=== PATIENT | female | born 1940 | race Caucasian/White ===

== ENCOUNTER 2017-07-13 08:37 | Emergency (ER) | payer MEDICARE, OTHER ==
[~2017-07-13] VITALS: Ht 160 cm; Wt 68.0 kg
[~2017-07-13 08:37] MED LIST: ATIVAN1 MG PO; BABY ASPIRIN81 MG PO; CALCIUM + D600 MG PO; FISH OIL1000 MG PO; FLEXERIL PO; HYDROCO/APAP1 T12 PO; LIPITOR10 MG PO; LORTAB 10 PO; PAXIL30 MG PO; ULTRAM50 MG PO
[2017-07-13] MEDS ORDERED: CEPHALEXIN500 MG PO (10:01)
[2017-07-13] MEDS ORDERED: MITIGARE0.6 MG PO (10:02)
[2017-07-13 10:28] VITALS: BP 105/71
== END 2017-07-13 10:35 | disposition home or self-care (01) ==
LOC: ED 08:37
DX: M25.572 Pain in left ankle and joints of left foot (principal); R50.9 Fever, unspecified